=== PATIENT | female | born 1955 | race Caucasian/White ===

== ENCOUNTER 2019-03-25 18:56 | Inpatient (IN) ==
[2019-03-25] MEDS ORDERED: CARDIZEM IV ONE (19:22)
[2019-03-25] MEDS ORDERED: NS 1,000 ML IV ONE (19:29)
[2019-03-25 19:47] LABS: BASO# 0.05 X1000 (0.0-0.2); BASO% 0.4 % (0.0-0.8); EOS# 0.11 X1000 (0.0-0.7); EOS% 0.9 % (0.0-10.0); HEMATOCRIT 40.3 % (37.0-47.0); HEMOGLOBIN 14.6 g/dL (12.0-16.0); IMM GRAN# 0.03 X1000 (0.0-0.04); IMM GRAN% 0.3 % (0.0-0.5); LYMPH# 4.29 X1000 (1.2-3.4); MCH 33.6 PG (27-31); MCHC 36.2 g/dL (33-37); MCV 92.9 FL (81-99); MONO# 0.64 X1000 (0.11-0.59); MONO% 5.5 % (1.7-9.3); NEUT# 6.46 X1000 (1.4-6.5); NEUT% 55.9 % (42.2-75.2); PLT 325 X1000 (130-400); RBC 4.34 XMIL (4.2-5.4); WBC 11.58 X1000 (4.8-10.8)
--- NOTE | 2019-03-25 19:51 | EKG Report ---
Test Performed on : 03/25/2019 7:00:05 PM Test Reason : CP Blood Pressure : / mmHG Vent. Rate : 140 BPM Atrial Rate : 144 BPM P-R Int : 000 ms QRS Dur : 104 ms QT Int : 312 ms P-R-T Axes : 000 -25 149 degrees QTc Int : 476 ms Atrial fibrillation. with rapid ventricular response. Voltage criteria for left ventricular hypertrophy ST & T wave abnormality, consider lateral ischemia Abnormal ECG No previous ECGs available Unconfirmed Result
--- NOTE | 2019-03-25 19:57 | PROVIDER DOCUMENTATION ---
HPI-Cardiac General - General Chief Complaint: Palpitations Stated Complaint: HEART BEATING FUNNY, SOB, Time Seen by Provider: 03/25/19 19:14 Source: patient Allergies/Adverse Reactions: Patient Allergies Allergy/AdvReac Type Severity Reaction Status Date / Time cefaclor [From Ceclor] Allergy Unknown Verified 03/25/19 19:12 erythromycin base Allergy Unknown Verified 03/25/19 19:12 Penicillins Allergy Unknown Verified 03/25/19 19:12 Sulfa (Sulfonamide Allergy Unknown Verified 03/25/19 19:12 Antibiotics) Home Medications: Home Medication List Medication Instructions Recorded Confirmed Last Taken Type Atenolol/Chlorthalidone 1 tab PO QAM 03/25/19 03/25/19 Unknown History [Atenolol-Chlorthalidone 100-25] Levothyroxine [Synthroid] 75 mcg PO QAM 03/25/19 03/25/19 Unknown History Lovastatin 40 mg PO QAM 03/25/19 03/25/19 Unknown History - History of Present Illness-Cardiac Nature of Presenting Problem: 64 YO F pmh for HTN presents with c/o palpitations x 2.5 days. She denies CP, ShOB, fatigue, fever. She has not had these type of symptoms before. Quality of Pain: reports: none Severity in ED: mild Onset/Duration: 2 days ago Timing: still present Context/Activities at Onset: reports: none Modifying Factors: improves with: nothing Palpitation Quality: fast/pounding heart beat History of arrythmia: reports: none Recent use of:: reports: no stimulants Similar Symptoms Previously?: No Recently Seen Here or By Another Healthcare Provider: No Review of Systems - Adult - REVIEW OF SYSTEMS - ADULT Constitutional: denies: chills, fever Eyes: reports: no symptoms reported Ears, Nose, Mouth & Throat: reports: no symptoms reported Cardiovascular: reports: palpitations. denies: chest pain, edema, heart murmur, irregular heart rate, poor circulation, syncope Respiratory: denies: cough, dyspnea on exertion, shortness of breath, wheezing Gastrointestinal: reports: constipation. denies: abdominal pain, nausea, vomiting Genitourinary: reports: no symptoms reported Musculoskeletal: reports: no symptoms reported Integumentary: reports: no symptoms reported Neurological: reports: no symptoms reported Psychiatric: reports: no symptoms reported Endocrine: reports: no symptoms reported Hematologic/Lymphatic: reports: no symptoms reported Allergic/Immunologic: reports: no symptoms reported Past History - Adult - PAST MEDICAL HISTORY-ADULT Review of Records: reports: Nursing Assessment Review, Medications Reviewed, Social history reviewed & non-contributory. Major Childhood Illnesses: reports: denies history Cardiovascular: reports: HTN Respiratory: reports: denies history Gastrointestinal: reports: other (abdominal hernia) Genitourinary: reports: denies history Musculoskeletal: reports: denies history Neurological: reports: denies history Psychiatric: reports: denies history Endocrine/Immune: reports: denies history - PRIOR SURGERIES/PROCEDURES Surgical/Procedure History: reports: appendectomy, BTL, tonsillectomy - FAMILY HISTORY Family History: HTN, other (multiple family members with Afib) - SOCIAL HISTORY Smoking: denies Substance Use: none/never Alcohol Use Frequency: 3-4 times a week Living Situation: family Physical Exam-General - PHYSICAL EXAM-ADULT Initial Vital Signs Reviewed: Yes - CONSTITUTIONAL General Appearance: appears well, no apparent distress - EYES Eyes: PERRL/EOMI, pink conjunctivae - HEAD, EARS, NOSE, MOUTH & THROAT HENMT: normocephalic/atraumatic, moist mucous membranes - NECK Neck: non-tender, full range of motion, supple - RESPIRATORY Respiratory: chest non-tender, lungs clear, normal breath sounds - CARDIOVASCULAR Cardiovascular: no edema, no JVD, tachycardia, irregularly irregular - GASTROINTESTINAL (ABDOMEN) Abdominal Exam: normal bowel sounds, non tender, soft, hernia (large ventral wall hernia) - MUSCULOSKELETAL Extremity: normal range of motion, non-tender, normal gait, normal inspection, no calf tenderness - SKIN Integumentary: normal color, normal turgor - NEUROLOGIC Neurologic: grossly normal - PSYCHIATRIC Psych/Mental Status: normal mood/affect, normal thought content, normal thought process - HEART Score HEART Score: History: Slightly Suspicious HEART Score: ECG: Normal (afib with RVR, no ST changes or Stemi) HEART Score: Age: 45-65 Years HEART Score: Risk Factors for Atherosclerotic Disease: No Risk Factors Known HEART Score: Troponin: < or = Normal Limit Total HEART Score:: 1 Progress - PLAN OF CARE/RESULTS Progress/Plan/Lab Results: Vital Signs - 8 hr 03/25/19 19:07 03/25/19 19:19 03/25/19 19:21 Temperature 98.2 F Pulse Rate 114 H 132 H Respiratory Rate 17 6 L Blood Pressure 126/80 97/84 O2 Sat by Pulse Oximetry 100 99 97 03/25/19 19:30 03/25/19 19:44 03/25/19 19:45 Temperature Pulse Rate 146 H Respiratory Rate 34 H Blood Pressure 115/87 O2 Sat by Pulse Oximetry 97 99 03/25/19 20:00 03/25/19 20:02 03/25/19 20:12 Temperature Pulse Rate 135 H 127 H 111 H Respiratory Rate 17 19 15 Blood Pressure 121/72 130/68 O2 Sat by Pulse Oximetry 98 98 97 03/25/19 20:14 03/25/19 20:15 03/25/19 20:20 Temperature Pulse Rate 116 H 93 H 88 Respiratory Rate 19 21 19 Blood Pressure 116/74 106/73 O2 Sat by Pulse Oximetry 97 97 96 03/25/19 20:30 03/25/19 20:31 03/25/19 20:40 Temperature Pulse Rate 82 84 90 Respiratory Rate 17 18 27 H Blood Pressure 118/67 121/72 O2 Sat by Pulse Oximetry 97 97 99 03/25/19 20:45 03/25/19 20:51 03/25/19 21:00 Temperature Pulse Rate 81 114 H 83 Respiratory Rate 16 23 14 Blood Pressure 160/99 128/72 O2 Sat by Pulse Oximetry 98 94 L 99 03/25/19 21:01 03/25/19 21:10 03/25/19 21:15 Temperature Pulse Rate 87 93 H 84 Respiratory Rate 23 17 19 Blood Pressure 122/75 O2 Sat by Pulse Oximetry 99 95 98 03/25/19 21:20 03/25/19 21:30 03/25/19 21:31 Temperature Pulse Rate 96 H 85 92 H Respiratory Rate 16 13 24 Blood Pressure 135/76 124/80 O2 Sat by Pulse Oximetry 98 98 95 03/25/19 21:40 03/25/19 21:45 Temperature Pulse Rate 78 88 Respiratory Rate 15 20 Blood Pressure 115/77 O2 Sat by Pulse Oximetry 99 85 L Laboratory Results - last 24 hr 03/25/19 03/25/19 03/25/19 19:35 19:35 19:35 WBC 11.58 H RBC 4.34 Hgb 14.6 Hct 40.3 MCV 92.9 MCH 33.6 H MCHC 36.2 RDW Std Deviation 12.0 Plt Count 325 MPV 10.0 Immature Gran % (Auto) 0.3 Neut % (Auto) 55.9 Lymph % (Auto) 37.0 Snyder % (Auto) 5.5 Eos % (Auto) 0.9 Baso % (Auto) 0.4 Immature Gran # (Auto) 0.03 Neut # (Auto) 6.46 Lymph # (Auto) 4.29 H Snyder # (Auto) 0.64 H Eos # (Auto) 0.11 Baso # (Auto) 0.05 Sodium 138 Potassium 3.6 Chloride 102 Carbon Dioxide 21 L Anion Gap 15 BUN 22 Creatinine 1.0 H Estimated GFR/1.73 m2 56 BUN/Creatinine Ratio 22 Glucose 102 Calculated Osmolality 279 Calcium 9.5 Magnesium 2.0 Total Bilirubin 0.54 AST 22 ALT 17 Alkaline Phosphatase 69 Troponin T < 0.010 Total Protein 7.4 Albumin 4.4 Globulin 3.0 Albumin/Globulin Ratio 1.5 TSH 03/25/19 19:35 WBC RBC Hgb Hct MCV MCH MCHC RDW Std Deviation Plt Count MPV Immature Gran % (Auto) Neut % (Auto) Lymph % (Auto) Snyder % (Auto) Eos % (Auto) Baso % (Auto) Immature Gran # (Auto) Neut # (Auto) Lymph # (Auto) Snyder # (Auto) Eos # (Auto) Baso # (Auto) Sodium Potassium Chloride Carbon Dioxide Anion Gap BUN Creatinine Estimated GFR/1.73 m2 BUN/Creatinine Ratio Glucose Calculated Osmolality Calcium Magnesium Total Bilirubin AST ALT Alkaline Phosphatase Troponin T Total Protein Albumin Globulin Albumin/Globulin Ratio TSH 2.80 Orders Category Date Time Status Cardiac Monitoring DIRECTED Care 03/25/19 19:25 Active CHEST-1 VIEW [RAD] Stat Exams 03/25/19 19:24 Completed CBC WITH ELECTRONIC DIFF [HEME] Stat Lab 03/25/19 19:35 Completed COMPREHENSIVE METABOLIC PANEL [CHEM] Stat Lab 03/25/19 19:35 Completed MAGNESIUM [CHEM] Stat Lab 03/25/19 19:35 Completed TROPONIN T Stat Lab 03/25/19 19:35 Completed TSH Stat Lab 03/25/19 19:35 Completed 0.9% Sodium Chloride Inj [Ns] 1,000 ml Med 03/25/19 19:29 Discontinued IV 999 mls/hr Atenolol/Chlorthalidone [Atenolol-Chlorthalidone 100-25 Med 03/26/19 09:00 Ordered ] 1 tab PO QAM Diltiazem [Cardizem] Med 03/25/19 19:22 Discontinued 10 mg IV NOW ONE Levothyroxine [Synthroid] Med 03/26/19 09:00 Ordered 75 microgm PO QAM Lovastatin Med 03/26/19 09:00 Ordered 40 mg PO QAM Potassium Chloride E.r. [Klor-Con] Med 03/25/19 21:53 Discontinued 40 meq PO NOW ONE EKG [EKG] Stat Ther 03/25/19 19:25 Draft Transfer/Admit Order [TRANSFER] Routine Transfer 03/25/19 21:56 Ordered Result Diagrams: 03/25/19 19:35 03/25/19 19:35 - REASSESSMENT Reassessment #1 Time Reassessed: 20:46 Status: improving (pt not currently in any pain. HR in 80s. 120s bp. stable) - EKG 1 Time of EKG reading by physician:: 19:03 EKG Read and Signed by:: Roselyn Manzo EKG Interpretation (*Must complete 3 of following elements*): Abnormal Rate: 140 (afib with RVR) Rhythm: indeterminant Prior EKG Comparison: no prior EKG - XRAY 1 XRAY Study: Chest Impression: See EMR Report (EXAM: CHEST-1 VIEW INDICATION: palpitations TECHNIQUE: One view COMPARISON: None. FINDINGS: There is thoracic scoliosis. There is minimal subsegmental atelectasis at the left lung base. The lungs are grossly clear, otherwise. There is no discrete pleural fluid collection or pneumothorax. The heart appears mildly prominent. Central vasculature is unremarkable. IMPRESSION: Mildly prominent cardiac silhouette and minimal left basilar atelectasis. Electronically signed by Wilbur Torres 03/25/2019 9:30 PM 03/25/19 2130) - CONSULTS/PCP/HOSPITALIST Notification #1 *Consult/PCP/Hospitalist*: Dr. Asencio accepts Time Discussed: 21:57 Consult Disposition: Will see in ED Departure - Departure Date of Disposition Decision: 03/25/19 Time of Disposition Decision: 21:50 DIAGNOSIS: Atrial fibrillation with RVR, Hernia of abdominal wall Disposition: ADMITTED INPATIENT 09 Certified Medical Emergency: Emergent Condition: Stable Referrals and Follow-Ups: Pastor Daniel MD [Primary Care Provider] - - Critical Care Note This patient required my direct & personal management of CC.: Yes Total Time (mins): 35 Critical Care Statement: This patient required my direct personal management to treat or rule out processes, the absence of which, could potentiallly result in sudden, clinically significant life or limb threatening deterioration. Attestation - Physician/ CORDELL Attestation The physician spent face to face time with patient:: Yes Advanced Practice Provider documentation review:: Supervising physician onsite and consulted in the evaluation and care of this patient. The physician did have a face to face encounter with the patient.
[2019-03-25 20:17] LABS: ALB/GLOB RATIO 1.5; ALBUMIN 4.4 g/dL (3.5-5.0); CALCIUM 9.5 mg/dL (8.8-10.2); POTASSIUM 3.6 mmol/L (3.5-5.1); TOTAL BILIRUBIN 0.54 mg/dL (0.20-1.00); TOTAL PROTEIN 7.4 g/dL (6.3-8.3)
--- NOTE | 2019-03-25 21:33 | Diag Imaging Result Doc PS360 ---
EXAM: CHEST-1 VIEW INDICATION: palpitations TECHNIQUE: One view COMPARISON: None. FINDINGS: There is thoracic scoliosis. There is minimal subsegmental atelectasis at the left lung base. The lungs are grossly clear, otherwise. There is no discrete pleural fluid collection or pneumothorax. The heart appears mildly prominent. Central vasculature is unremarkable. IMPRESSION: Mildly prominent cardiac silhouette and minimal left basilar atelectasis. Electronically signed by Wilbur Torres 03/25/2019 9:30 PM
[2019-03-25] MEDS ORDERED: KLOR-CON PO ONE (21:53)
--- NOTE | 2019-03-25 22:40 | HISTORY AND PHYSICAL ---
PRIMARY CARE PROVIDER: Tutu Daniel. CHIEF COMPLAINT: Heart palpitations and shortness of breath for 4 days. HISTORY OF PRESENTING ILLNESS: A 64-year-old female with a history of hypertension, hyperlipidemia, hypothyroidism who had presented to the emergency department with 4 days history of having heart rate that was racing. She states that she was short of breath and fatigued and did not feel well. She states the symptoms would come and go and it was not improving. She was evaluated in the emergency department. She was found to be in atrial fibrillation with RVR. She was given IV Cardizem and her rate improved. However, she will need admission for further evaluation and management. At the time of my examination, she denied any headache, fever, chills, chest pain, hemoptysis, melena, weight changes, but complained of shortness of breath and palpitations and being fatigued. PAST MEDICAL HISTORY: Includes hypertension, hyperlipidemia, hypothyroidism. PAST SURGICAL HISTORY: Appendectomy, tonsillectomy. ALLERGIES: Penicillin, sulfa, Ceclor, erythromycin. CURRENT MEDICATIONS: Include atenolol, chlorothiazide 125 one p.o. q.a.m., levothyroxine 75 mcg p.o. q.a.m., lovastatin 40 mg p.o. q.a.m. SOCIAL HISTORY: She is a former smoker. Admits to social alcohol use. Denies any illicit drug use. FAMILY HISTORY: Positive for coronary disease father. REVIEW OF SYSTEMS: Fourteen point review of systems as listed in the HPI, other systems negative. PHYSICAL EXAMINATION: GENERAL: Cooperative, friendly female. She is resting comfortably now. VITAL SIGNS: Temperature 98.2 degrees, pulse 114, respirations 17, blood pressure 126/80. HEENT: Atraumatic, normocephalic. Extraocular movements intact. PERRLA. NECK: No masses. CHEST: Clear to auscultation. CARDIOVASCULAR: Irregular. ABDOMEN: Soft. Positive bowel sounds. EXTREMITIES: Trace edema. NEUROLOGIC: She is awake, alert, oriented x3. : No bladder distention. SKIN: Warm. LABORATORIES AND STUDIES: WBCs 11.58, hemoglobin 14.6, hematocrit 40.3, platelets 325,000. Sodium 138, potassium 3.6, chloride 102, CO2 is 21, BUN is 22, creatinine is 1.0, glucose is 102. Chest x-ray shows minimal left basilar atelectasis. ASSESSMENT: 64-year-old female with a history of hypertension, hyperlipidemia, hypothyroidism who had presented to emergency department with 4 days history of having heart racing and palpitation symptoms. She states that she was short of breath and fatigued and it seemed to be worsening. She was evaluated in the emergency department. She is found to be in atrial fibrillation with rapid ventricular response. Subsequently, she will require admission for further management. 1. Atrial fibrillation with rapid ventricular response. 2. Hypertension. 3. Hyperlipidemia. 4. Hypothyroidism. PLAN: 1. Admit patient PVC. 2. Continue monitor patient on telemetry. Her rate increases will start Cardizem drip. 3. We will consult Cardiology. 4. We will monitor blood pressure closely. 5. Restart home medications. 6. We will check a thyroid profile. 7. Put patient on DVT prophylaxis with Lovenox. 8. We will continue to follow and reassess. Make further recommendation based on patient's clinical course. cc: Stephen Asencio MD
[2019-03-25] MEDS ORDERED: NS 1,000 ML IV SCH (22:54)
[2019-03-25] MEDS ORDERED: LOVENOX SUBQ SCH (22:54)
[2019-03-26] MEDS ORDERED: SYNTHROID PO SCH (07:00)
[2019-03-26 07:24] LABS: BASO# 0.04 X1000 (0.0-0.2); BASO% 0.6 % (0.0-0.8); EOS% 1.5 % (0.0-10.0); HEMATOCRIT 37.7 % (37.0-47.0); HEMOGLOBIN 13.3 g/dL (12.0-16.0); LYMPH% 33.3 % (20.5-51.1); MCH 33.5 PG (27-31); MCHC 35.3 g/dL (33-37); MONO% 6.1 % (1.7-9.3); NEUT# 3.86 X1000 (1.4-6.5); NEUT% 58.5 % (42.2-75.2); PLT 230 X1000 (130-400); RBC 3.97 XMIL (4.2-5.4); RDW 12.1 % (11.5-14.5)
[2019-03-26 07:59] LABS: AGAP 11; BUN 15 mg/dL (8-22); CALCIUM 9.1 mg/dL (8.8-10.2); CHLORIDE 110 mmol/L (98-107); COSMO 291; CREATININE 0.6 mg/dL (0.5-0.9); ESTIMATED GFR > 60; GLUCOSE 86 mg/dL (70-104); SODIUM 146 mmol/L (136-145); TCO2 25 mmol/L (25-35)
[2019-03-26] MEDS ORDERED: CHLORTHALIDONE PO SCH (09:00)
[2019-03-26] MEDS ORDERED: MEVACOR PO SCH (09:00)
[2019-03-26] MEDS ORDERED: ATENOLOL PO SCH (09:00)
[2019-03-26] MEDS ORDERED: CARDIZEM 100 MG/NS 100 MG/100 ML IVPB IV SCH (10:45)
--- NOTE | 2019-03-26 11:07 | PROGRESS NOTE ---
DATE: 03/26/2019 SUBJECTIVE: This morning Ms. Kraus referred to be doing a lot better. Denies any new complaints. She referred the palpitation is now a lot better. OBJECTIVE: Vital signs: Blood pressure is 156/66. The pulse bounced anywhere between 110 to 135 when I was with her in the room. Respiratory rate is 16, temperature 97.7 degrees. Patient is saturating 99% on room air. General: Ms. Kraus is a 64-year-old female. She is in bed no distress. HEENT: Mucosa is pink and moist. Anicteric. Acyanotic. Neck: Supple. Chest: Good air entry bilateral. There was no crepitations no rhonchi. Cardiovascular: Irregularly irregular. Tachycardic no murmurs no rubs. Abdomen: Soft, nontender. Bowel sounds present. There is a large ventral hernia, easily reducible. Extremities: No pedal edema. TRANSPORTATION CLERK: Patient is awake, alert, oriented. There is no focal neurological deficit. LABORATORY DATA: Has been reviewed. CBC is completely normal. Chemistry shows sodium and chloride slightly elevated. I think is because of the fluid. Magnesium was 2.0 yesterday. TSH is within normal range. Troponins have been done twice and are unremarkable. EKG last night did show atrial fibrillation with RVR with a rate of 140. ASSESSMENT: 1. New onset of atrial fibrillation with rapid ventricular response. Patient continues to be in rapid ventricular response , so we will start her back on the drip. I have also started her on p.o. metoprolol. Patient was atenolol and chlorthalidone for blood pressure control, so we will put her back on the beta jagruti. 2. Hypertension controlled. 3. Dyslipidemia. 4. Hypothyroidism on Synthroid. TSH is within normal range. 5. Morbid obesity with body mass index of 34.3. 6. Large ventral hernia. Patient follows up with Dr. Saucedo, surgeon in [place]. PLAN: So in general I think Ms. Kraus is fairly stable. She is currently asymptomatic, but continues to be tachycardic, continues to be in atrial fibrillation with rapid ventricular response. We are going to start her on the drip. I have also started her on p.o. metoprolol. Once her heart rate is better controlled, then we will be able to wean her off the drip. Ms. Kraus is also pending cardiology consult. We have ordered to trend her troponin to rule out any non STEMI and also to get an echocardiogram to assess the valvular structures and ejection fraction. [id number] score is probably 1 for just the blood pressure, so will not start her on any anticoagulation now until she is seen by cardiology. cc: Arcadio Braswell MD MTDDrake
[2019-03-26] MEDS: CARDIZEM 125 MG/D5W 125 MG/125 ML IVPB IV SCH (11:35)
--- NOTE | 2019-03-26 13:22 | CARDIOLOGY CONSULTATION ---
DATE: 03/26/2019 CHIEF COMPLAINT ON PRESENTATION: Palpitations, shortness of breath. HISTORY OF PRESENT ILLNESS: Ms. Kraus is a 64-year-old hypertensive female who presented for evaluation of palpitations and shortness of breath. These began on . She denies any overt orthopnea or chest pain. She has never had these issues before, but has multiple relatives who have a history of atrial fibrillation. She has no complaints presently. She is on a diltiazem infusion, and continues to be in atrial fibrillation with a much better controlled rate. She has no issues with lower extremity edema lately. Again, no exertional chest pain. PAST MEDICAL HISTORY: Significant for: 1. Hypertension. 2. Hyperlipidemia. 3. Hypothyroidism. SOCIAL HISTORY: She previously smoked. Occasional alcohol. No illicit drug use. FAMILY HISTORY: Apparent history of coronary disease in her family, and multiple relatives with atrial fibrillation. REVIEW OF SYSTEMS: A 10-system review of systems is negative, except for those things mentioned in the HPI. PHYSICAL EXAMINATION: Vital Signs: She is afebrile, heart rate is in the low 100s, blood pressure 124/71. General: She is in no acute distress. HEENT: Oropharynx is moist. Normal dentition. Eye examination shows pink conjunctivae. White sclerae. Neck: No obvious thyromegaly or thyroid tenderness. Cardiovascular: She sounds to be in an irregularly irregular rhythm. It is mildly tachycardic, consistent with atrial fibrillation on the monitor. Extremities: She has no lower extremity edema. She has warm and well-perfused extremities. Chest: Clear bilaterally. She has no increased work of breathing. Abdomen: Soft, nontender, nondistended. She has no obvious organomegaly. Skin: Warm and dry throughout without any rashes. Neurological: She is moving all extremities well. She has no lateralizing deficits. Psychiatric: Alert, oriented, pleasant. Normal mood and affect. PERTINENT DATA: Her chest x-ray shows mildly prominent cardiac silhouette with minimal left basilar atelectasis. Her EKG reviewed by me on presentation suggest LVH, rapid atrial fibrillation with a rate of 140 beats per minute. White count is 6.6, hematocrit 37, platelet count 230,000. Sodium is 146, potassium 4, BUN 15, creatinine 0.6. ProBNP is 3851. Troponin is negative. TSH 2.8. ASSESSMENT: Ms. Kraus is a 64-year-old female who presents with new-onset atrial fibrillation. PLAN: I agree with medication adjustment per Dr. Braswell with the addition of the metoprolol. We will continue her on the diltiazem infusion for the time being. I will stop her Lovenox at prophylactic dose, and place her on treatment dose. Risks, benefits, and alternatives to the anticoagulation were discussed with her. Ultimately, if she remains in atrial fibrillation, I would pursue DC cardioversion and ESTHER on Wednesday. This was discussed with her. I will stop her n.p.o. status, and give her a heart healthy diet. cc: Deion Lai MD
[2019-03-26] MEDS: LOPRESSOR PO SCH ×2 (14:00→20:20)
--- NOTE | 2019-03-26 14:55 | ECHO REPORT ---
ORDER DATE: 03/26/2019 INDICATIONS: Atrial fibrillation, hypertension, shortness of breath. FINDINGS: 1. The right atrium appears mildly enlarged at 4.1 cm. 2. Mild tricuspid regurgitation. RV systolic pressure of 44. 3. Normal RV size and systolic function. 4. Mild pulmonic insufficiency. 5. Severe left atrial enlargement with a volume index of 48. 6. No mitral valve prolapse. Mild mitral regurgitation. No evidence of mitral stenosis. 7. Normal LV size. End-diastolic dimension of 5.5. Normal wall thicknesses with a posterior and interventricular septal wall thickness of 1.1 cm respectively. Normal LV systolic function. Estimated EF of 65% to 70% with normal wall motion. 8. The aortic valve opens well. It is trileaflet. No evidence of stenosis or insufficiency. 9. Aorta appears normal on visualized segments. 10. No pericardial effusion identified. cc: MD Arcadio Andrade MD
[2019-03-26] MEDS: MEVACOR PO SCH (17:00)
[2019-03-26] MEDS: TYLENOL PO PRN (17:00)
[2019-03-26] MEDS: LOVENOX SUBQ SCH (17:00)
--- NOTE | 2019-03-26 17:57 | EKG Report ---
Test Performed on : 03/26/2019 09:20:59 AM Test Reason : Afib Blood Pressure : / mmHG Vent. Rate : 102 BPM Atrial Rate : 300 BPM P-R Int : 000 ms QRS Dur : 098 ms QT Int : 362 ms P-R-T Axes : 000 -23 033 degrees QTc Int : 471 ms Atrial fibrillation. with rapid ventricular response. Moderate voltage criteria for LVH, may be normal variant Abnormal ECG When compared with ECG of 25-MAR-2019 19:00, (Unconfirmed) ST no longer depressed in Lateral leads Confirmed by Rosmery HAND, Jasper Holly ([id number]) on 03/29/2019 8:06:28 AM
[2019-03-27] MEDS: CARDIZEM 125 MG/D5W 125 MG/125 ML IVPB IV SCH (00:19)
[2019-03-27] MEDS: LOPRESSOR PO SCH ×3 (01:43→20:59)
[2019-03-27] MEDS: TYLENOL PO PRN (01:56)
[2019-03-27] MEDS: LOVENOX SUBQ SCH (05:01)
[2019-03-27] MEDS: SYNTHROID PO SCH ×2 (05:51→06:17)
[2019-03-27] MEDS: TAMBOCOR PO SCH ×2 (12:26→20:59)
--- NOTE | 2019-03-27 12:26 | PROGRESS NOTE ---
DATE: 03/27/2019 SUBJECTIVE: This morning Ms. Kraus refers to be doing okay. No more fluttering of the heart. We understand last night her heart rate went down into the 50s, so the Cardizem drip was discontinued. OBJECTIVE: Vital signs: Blood pressure is 112/73, pulse 97 this morning, respiration is 18, temperature 98.5 degrees. Patient is saturating 95% on room air. General: Ms. Kraus is a 64-year- old female. She is in bed. No distress. Mucosa is pink and moist. Anicteric. Acyanotic. Neck: Supple. Chest: Clear to auscultation. Cardiovascular: Irregularly irregular but rate controlled. No murmurs. Abdomen: Soft, nontender. There is a large ventral hernia which is easily reducible. Extremities: No pedal edema. Central Nervous System: Patient is awake, alert, and oriented. No focal deficit. LABORATORY WORK: No lab work for this morning. CURRENT MEDICATIONS: The patient's current medications have all been reviewed. She has been started on flecainide 100 mg b.i.d. by Cardiology. She has also been started on Eliquis 5 mg b.i.d. ASSESSMENT: 1. New onset atrial fibrillation with rapid ventricular response. The patient has now been started on flecainide. She continues to be on metoprolol and Eliquis. There is a plan for potential cardioversion tomorrow if she has not cardioverted already. 2. Hypertension controlled. 3. Dyslipidemia. 4. Hypothyroidism. We will continue with Synthroid. 5. Morbid obesity with BMI of 34. 6. Large ventral hernia. Patient follows up with a surgeon in [place]. PLAN: In general, Ms. Kraus is doing okay. She still remains in atrial fibrillation but rate controlled. She has been started on flecainide this morning by Cardiology. We will be following up on her heart rhythm. There is a plan for possible electrical cardioversion tomorrow if she has no converted. She continues to be on anticoagulation. cc: Arcadio Braswell MD
--- NOTE | 2019-03-27 12:53 | CARDIOLOGY PROGRESS NOTE ---
DATE: 03/27/2019 SUBJECTIVE: Ms. Kraus sounds like has had some karina episodes with probable intermittent conversion to sinus but she remains in atrial fibrillation today. OBJECTIVE: Vital Signs: She is afebrile. Heart rate currently during my exam was in the 90s to low 100s. Her blood pressure is 118/80. General: She is in no acute distress. Cardiovascular: She is in an irregularly irregular rhythm. She has no murmurs. She has no S3. She has no lower extremity edema. Chest: Exam sounds clear bilaterally. She has no increased work of breathing. Abdomen: Soft, nontender. PERTINENT DATA: White count 6.6, hematocrit 37, platelet count 238,000. Those were from labs yesterday. ASSESSMENT: Ms. Kraus is a 64-year-old female who presents with new onset atrial fibrillation. PLAN: We will proceed with ESTHER cardioversion in the morning. I have discontinue her diltiazem infusion. We will initiate her on flecainide as well as reduced her metoprolol to b.i.d. as she has had some intermittent karina episodes. I have discontinued the treatment dose of Lovenox and placed her on apixaban. We have already discussed with her the risks, benefits, and alternatives to anticoagulation. Tentative plans for cardioversion in the morning. cc: Deion Lai MD
--- NOTE | 2019-03-27 17:35 | EKG Report ---
Test Performed on : 03/27/2019 4:18:04 PM Test Reason : Rhythm change Blood Pressure : / mmHG Vent. Rate : 076 BPM Atrial Rate : 076 BPM P-R Int : 182 ms QRS Dur : 102 ms QT Int : 412 ms P-R-T Axes : 040 -25 048 degrees QTc Int : 463 ms Normal sinus rhythm. Left atrial enlargement Left ventricular hypertrophy Abnormal ECG When compared with ECG of 26-MAR-2019 09:20, (Unconfirmed) Sinus rhythm. has replaced Atrial fibrillation. Confirmed by Rosmery HAND, Jasper Holly ([id number]) on 03/29/2019 8:13:10 AM
--- NOTE | 2019-03-27 17:56 | Diag Imaging Result Doc PS360 ---
EXAM: US ABDOMEN-COMPLETE INDICATION: abnormal finding on echo in abd, ?mass COMPARISON: None. FINDINGS: The gallbladder appears normal with no stones, wall thickening, or pericholecystic fluid. The common bile duct is normal in diameter. Sonographic Jang's sign was reported to be negative. The liver is grossly unremarkable. Portal venous flow is hepatopetal. The pancreas is partially obscured. The visualized portion is unremarkable. The aorta is partially obscured by bowel gas. The visualized portion is unremarkable. The IVC is unremarkable. The spleen is unremarkable. The kidneys are grossly unremarkable. No herniated bowel can't be identified by ultrasound. IMPRESSION: Essentially unremarkable abdominal ultrasound. Electronically signed by Wilbur Torres 03/27/2019 5:53 PM
[2019-03-27] MEDS: MEVACOR PO SCH (18:02)
[2019-03-27] MEDS: ELIQUIS PO SCH (20:59)
[2019-03-28] MEDS: SYNTHROID PO SCH (06:14)
--- NOTE | 2019-03-28 06:58 | EKG Report ---
Test Performed on : 03/28/2019 06:49:04 AM Test Reason : afib Blood Pressure : / mmHG Vent. Rate : 069 BPM Atrial Rate : 069 BPM P-R Int : 196 ms QRS Dur : 104 ms QT Int : 432 ms P-R-T Axes : 051 -05 050 degrees QTc Int : 462 ms Normal sinus rhythm. Left atrial enlargement Left ventricular hypertrophy Abnormal ECG When compared with ECG of 27-MAR-2019 16:18, (Unconfirmed) No significant change was found Confirmed by Rosmery HAND, Jasper Holly ([id number]) on 03/29/2019 8:18:13 AM
[2019-03-28 07:31] LABS: BASO# 0.03 X1000 (0.0-0.2); BASO% 0.5 % (0.0-0.8); EOS# 0.14 X1000 (0.0-0.7); EOS% 2.1 % (0.0-10.0); HEMATOCRIT 39.9 % (37.0-47.0); HEMOGLOBIN 14.1 g/dL (12.0-16.0); LYMPH# 2.25 X1000 (1.2-3.4); LYMPH% 34.1 % (20.5-51.1); MCH 33.5 PG (27-31); MCHC 35.3 g/dL (33-37); MCV 94.8 FL (81-99); MONO# 0.35 X1000 (0.11-0.59); MONO% 5.3 % (1.7-9.3); MPV 9.8 FL (7.4-10.4); NEUT# 3.82 X1000 (1.4-6.5); PLT 241 X1000 (130-400); RBC 4.21 XMIL (4.2-5.4); RDW 12.2 % (11.5-14.5); WBC 6.59 X1000 (4.8-10.8)
[2019-03-28 07:38] VITALS: BP 115/75
[2019-03-28 07:40] LABS: AGAP 13; BUN 14 mg/dL (8-22); CALCIUM 9.2 mg/dL (8.8-10.2); CHLORIDE 104 mmol/L (98-107); COSMO 280; CREATININE 0.6 mg/dL (0.5-0.9); ESTIMATED GFR > 60; GLUCOSE 93 mg/dL (70-104); POTASSIUM 3.5 mmol/L (3.5-5.1); SODIUM 140 mmol/L (136-145); TCO2 23 mmol/L (25-35)
[2019-03-28] MEDS: TYLENOL PO PRN (08:52)
[2019-03-28] MEDS: ELIQUIS PO SCH (08:53)
[2019-03-28] MEDS: LOPRESSOR PO SCH (08:53)
[2019-03-28] MEDS: TAMBOCOR PO SCH (08:53)
--- NOTE | 2019-03-28 20:39 | DISCHARGE SUMMARY ---
ADMISSION DATE: 03/25/2019 DISCHARGE DATE: 03/28/2019 DISPOSITION: Home. FOLLOWUP: 1. Dr. Daniel. 2. Dr. Deion Lai. CONSULTATION DURING THIS ADMISSION: Cardiology was consulted. The patient was seen by Dr. Deion Lai. INVASIVE PROCEDURES DONE DURING THIS ADMISSION: None. However, a ESTHER was scheduled, but the patient spontaneously converted before this was done. IMAGING STUDIES OF SIGNIFICANCE: A chest x-ray on admission did show mildly prominent cardiac silhouette and minimal left basilar atelectasis. An echocardiogram revealed ejection fraction of 65% to 70% with normal wall motion, right ventricle systolic pressure of 44, severe left atrial enlargement with a volume index of 48. An ultrasound of the abdomen was unremarkable. ADMISSION DIAGNOSES: 1. Atrial fibrillation with rapid ventricular response. 2. Hypertension. 3. Hyperlipidemia. 4. Hypothyroidism. DIAGNOSES AT THE TIME OF THE DISCHARGE: 1. New onset atrial fibrillation with rapid ventricular response that has spontaneously converted on flecainide. 2. Hypertension. 3. Dyslipidemia. 4. Hypothyroidism. 5. Obesity with body mass index of 34. 6. Large ventral hernia. DISCHARGE MEDICATIONS: 1. Levothyroxine 75 mcg p.o. daily. 2. Lovastatin 40 mg p.o. at bedtime. 3. Apixaban 5 mg b.i.d. 4. Chlorthalidone 25 mg p.o. daily. 5. Metoprolol 25 mg b.i.d. 6. Flecainide 100 mg b.i.d. PRESENTING COMPLAINT: Heart palpitation. HISTORY OF PRESENTING COMPLAINT: Miss Kraus is a 64-year-old female who presented to the emergency department because of shortness of breath and heart palpitation for 4 days. She was found to be in atrial fibrillation RVR. She was admitted for further medical care. HOSPITAL COURSE: Miss Kraus was admitted to [facility] and was started on Cardizem drip. Over the first 24 hours the heart rate got better, but she was still in atrial fibrillation. Cardiology was consulted. The patient was seen by Dr. Deion Lai. Multiple changes were done to the medications. She continued to be in atrial fibrillation, so flecainide was started as well as anticoagulation. There was a recommendation for a ESTHER if the patient did not convert pharmacologically with the flecainide. Fortunately, after flecainide was started, a couple hours later Miss Kraus converted to sinus rhythm and she remained that until the day of discharge which was more than 24 hours later. This morning she refers to be feeling a lot better. No shortness of breath. No palpitation. She feels stronger. We think she is stable enough for discharge. PHYSICAL EXAMINATION: Her current vital signs: Blood pressure is 115/75, pulse of 87 respiration is 18, temperature 97.9. abdomen: Physical exam is unremarkable except for large ventral hernia. DISPOSITION: Miss Kraus is going to be discharged to follow up with Dr. Deion Lai. She is also supposed to follow up with Dr. Daniel who is her primary care doctor and her surgeon in [place] for her ventral hernia. At the time of the discharge there was no pending labs or imaging studies. All the discharge instructions have been discussed with Miss Kraus. Her daughter was at the bedside at the time of the encounter. TIME SPENT FOR DISCHARGE: 38 minutes. cc: MD Dr. María Chao MD
== END 2019-03-28 11:30 | disposition home or self-care (01) | DRG 310 ==
LOC: ED 18:56 → SUATTDRO 22:33 → 2N 22:33
PROVIDERS: ATTEND Internal Medicine